=== PATIENT | female | born 1985 | race Caucasian/White ===

== ENCOUNTER 2016-11-10 08:47 | Day surgery (SDC) | payer OTHER ==
[~2016-11-10] VITALS: Ht 162.6 cm; Wt 77.1 kg
[~2016-11-10 08:47] MED LIST: MULTIVITAMIN1 EAC2 PO
[2016-11-10 09:19] VITALS: BP 116/67
[2016-11-10] MEDS ORDERED: ENDOCET 5-3251 EACH PO (13:21)
[2016-11-10] MEDS ORDERED: IBUPROFEN800 MG PO (13:21)
[2016-11-10 14:30] VITALS: BP 116/57
[2016-11-10 15:33] VITALS: BP 112/60
[2016-11-10 17:25] VITALS: BP 117/64
== END 2016-11-10 17:30 | disposition home or self-care (01) ==
LOC: SDC 08:47
DX: N94.6 Dysmenorrhea, unspecified (principal); R10.2 Pelvic and perineal pain; N80.0 Endometriosis of uterus; N83.8 Other noninflammatory disorders of ovary, fallopian tube and broad ligament; F17.200 Nicotine dependence, unspecified, uncomplicated
CPT/HCPCS: 88307; J0330; J0690; J1100; J1170; J1885; J2405; J2710; J2765; J3010